=== PATIENT | male | born 1960 | race Caucasian/White ===

== ENCOUNTER 2023-12-12 08:52 | Day surgery (SDC) | payer MEDICARE ==
--- NOTE | 2023-12-12 08:57 | HP ---
DATE OF SURGERY: 12/12/2023 HISTORY OF PRESENT ILLNESS: The patient is a 63-year-old with history of positive Cologuard. No bloody stools or change in bowel movements. Family history negative for cancer. No prior colonoscopy. PAST MEDICAL HISTORY: Hyperlipidemia. Hypertension. PAST SURGICAL HISTORY: Back surgery. Umbilical hernia repair. Rotator cuff surgery. MEDICATIONS: Lisinopril, ibuprofen, atorvastatin, Tylenol. ALLERGIES: NKDA. FAMILY HISTORY: Stroke. Alzheimer's disease. Negative for colon cancer. SOCIAL HISTORY: Half pack per day smoker. Occasional alcohol use. REVIEW OF SYSTEMS: Twelve systems reviewed. No chest pain or palpitations. Other systems negative or noncontributory as above and per preadmission questionnaire. PHYSICAL EXAMINATION: Height 6 feet. BMI 27. GENERAL: No acute distress. HEENT: Sclerae nonicteric. EOMI. Oral mucous membranes moist. NECK: No JVD. CHEST: Equal excursion, nonlabored breathing. CVS: Regular rate and rhythm. ABDOMEN: Soft. EXTREMITIES: No significant edema or cyanosis. NEURO: Alert, oriented, moving extremities symmetrically. RECTAL: Deferred timed to endoscopy exam. PSYCH: Appropriate mood and affect. SKIN: Dry. IMPRESSION: Positive Cologuard, needs colonoscopy for further evaluation. He was shown the risk sheet, explained the procedure in detail including but not limited to risk of bleeding or infection, risk of bowel injury or perforation possibly requiring further procedure, risk of missed or nondiagnosis possibly requiring barium enema, other studies, risk of anesthesia or sedation, risk of bowel injury possibly requiring open procedure, risk of bowel prep but not limited to as well as risk of sedation. Will proceed with outpatient colonoscopy under MAC anesthesia. Will continue medications for hypertension and hyperlipidemia.
[2023-12-12] MEDS ORDERED: Lactated Ringers 1,000 ML IV ONE (09:34)
[2023-12-12] MEDS: Lactated Ringers 1,000 ML IV SCH (09:42)
[2023-12-12 09:48] VITALS: TEMP 96.4
[2023-12-12] MEDS ORDERED: DIPRIVAN 200 MG/20 ML IV ONE (10:40)
[2023-12-12] MEDS ORDERED: Xylocaine-Mpf 2% 5 Ml Vial ONE (10:41)
[2023-12-12 11:28] VITALS: RESP 16; O2SAT 96
[2023-12-12 11:42] VITALS: BP 135/96; PULSE 68
--- NOTE | 2023-12-13 08:40 | OP ---
SURGERY DATE/TIME: 12/12/2023 1039 PREOPERATIVE DIAGNOSIS: Prior history of polyp needs follow up screening colonoscopy. POSTOPERATIVE DIAGNOSES: 1) Polyps. 2) Diverticulosis. 3) Fair bowel prep. 4) ASA Class II. 5) Withdrawal time approximately 12 minutes. 6) Prep overall fair. He did have mild diverticulosis in left colon. PROCEDURES: 1) Colonoscopy to cecum. 2) Hot biopsy polypectomy sigmoid colon polyp x4. 3) Hot biopsy piecemeal polypectomy with biopsy forceps transverse colon polyp x2. SURGEON: Dr. Juan Silva M.D. ANESTHESIA: MAC. ESTIMATED BLOOD LOSS: Minimal. INDICATIONS: As noted above. Consent obtained. DESCRIPTION OF PROCEDURE AND FINDINGS: The patient is taken to the endoscopy room. MAC anesthesia induced. After official time out and no disagreement with planned procedure, digital rectal exam did not reveal any rectal masses. Video colonoscope inserted and passed up through the tortuous sigmoid, descending, transverse and ascending colon around to the cecum. Appendiceal orifice and valve well visualized and photo documented. Prep overall was fair with a little bit of liquidy semisolid stool just limiting the exam. The scope was slowly and carefully withdrawn over the next 12 minutes. In the transverse colon, there were two polyps that are about 3 mm in size removed with hot biopsy polypectomy in piecemeal fashion in two pieces and appeared to be completely removed. Good hemostasis noted. The scope pulled back down left colon. He did have some mild diverticulosis. Scope pulled back in the sigmoid area where there were four small early polyps versus hyperplastic lesion removed with hot biopsy forceps with brief bursts of cautery. Good hemostasis noted. It was a little bit more hyperplastic in nature. The scope is withdrawn. He had some small internal and external hemorrhoids. No signs of any large polyps, masses or obstructing lesion. The scope is withdrawn. The patient tolerated the procedure well. I went out in the waiting room to look for family out in the waiting area.
== END 2023-12-12 11:46 | disposition home or self-care (01) ==
LOC: SDC 08:52
PROVIDERS: ATTEND Surgery
DX: Z12.11 Encounter for screening for malignant neoplasm of colon (principal); Z09 Encounter for follow-up examination after completed treatment for conditions other than malignant neoplasm; Z86.010 Personal history of colon polyps; K57.30 Diverticulosis of large intestine without perforation or abscess without bleeding; K64.4 Residual hemorrhoidal skin tags; K64.8 Other hemorrhoids; D12.5 Benign neoplasm of sigmoid colon; D12.3 Benign neoplasm of transverse colon
CPT/HCPCS: J2704